=== PATIENT | female | born 1965 | race African-American/Black ===

== ENCOUNTER 2019-01-12 16:43 | Emergency (ER) | payer OTHER ==
[2019-01-12 16:58] LABS: APPEARANCE,URINE Cloudy (CLEAR); BILIRUBIN,URINE Negative (NEGATIVE); COLOR,URINE Yellow (YELLOW); GLUCOSE, URINE (UA) Negative (NEGATIVE); KETONES,URINE Negative (NEGATIVE); LEUKOCYTE ESTERASE ,URINE Trace (NEGATIVE); NITRATE,URINE Negative (NEGATIVE); OCCULT BLOOD,URINE Negative (NEGATIVE); PROTEIN,URINE Negative (NEGATIVE)
[2019-01-12 17:17] LABS: BACTERIA,URINE Moderate /HPF (None Seen); MUCUS,URINE Few LPF (None Seen)
[2019-01-12] MEDS ORDERED: SODIUM CHLORIDE 0.9% 1000ML 1,000 ML IV ONE (17:30)
[2019-01-12 17:36] LABS: BASOPHILS % (AUTO) 0.7 % (0.0-5.0); EOSINOPHILS % (AUTO) 2.1 % (0.0-8.0); HEMATOCRIT 41.6 % (36-48); LYMPHOCYTES % (AUTO) 33.7 % (21.0-51.0); MEAN CORPUSCULAR HEMOGLOBIN 24.7 pg (27.0-33.0); MEAN CORPUSCULAR HGB CONC 31.8 g/dL (32.0-36.0); MEAN CORPUSCULAR VOLUME 77.8 fL (79-99); MONOCYTES % (AUTO) 8.5 % (3.0-13.0); NUCLEATED RED BLOOD CELLS 0.1 % (0.0-0.19); PLATELET COUNT (AUTO) 303 K/uL (130-400); RED BLOOD CELL COUNT(AUTO) 5.35 MIL/uL (4.00-5.50); RED CELL DISTRIBUTION WIDTH 15.1 % (11.0-15.5); WHITE BLOOD COUNT (AUTO) 8.9 K/uL (4.8-10.8)
[2019-01-12 17:44] LABS: CREATININE 0.9 mg/dL (0.5-1.5); POTASSIUM 4.2 mmol/L (3.5-5.1)
[2019-01-12 17:49] LABS: ALBUMIN 3.5 g/dL (3.5-5.0); BILIRUBIN,TOTAL 0.4 mg/dL (0.2-1.0); TOTAL PROTEIN, SERUM 8.4 g/dL (6.0-8.3)
[2019-01-12] MEDS ORDERED: IOHEXOL-350 75 ML VIAL IV ONE (18:09)
[2019-01-12] MEDS ORDERED: CEFTRIAXONE SODIUM 1 GM ONE (18:12)
[2019-01-12] MEDS ORDERED: HYDROCODONE/ACETAMINOPHEN 5/325 MG TAB ONE (18:43)
[2019-01-12] MEDS ORDERED: ONDANSETRON HCL 4 MG/2 ML VIAL ONE (19:03)
== END 2019-01-12 20:11 | disposition home or self-care (01) ==
LOC: EDH 16:43
DX: K57.92 Diverticulitis of intestine, part unspecified, without perforation or abscess without bleeding (principal); Z90.710 Acquired absence of both cervix and uterus; Z90.49 Acquired absence of other specified parts of digestive tract; Z72.0 Tobacco use
CPT/HCPCS: 36415; 74177; 80053; 81001; 83690; 85025; 96374; 96375; 99284; J0696; J2405; J7030; Q9967

== ENCOUNTER 2021-07-26 08:53 | Emergency (ER) | payer OTHER ==
[~2021-07-26] VITALS: Ht 175.3 cm; Wt 163.3 kg
[2021-07-26 11:31] VITALS: BP 154/92
[2021-07-26] MEDS ORDERED: DICL50TA9 PO (11:33)
[2021-07-26] MEDS ORDERED: ACET1TAB25 PO (11:33)
== END 2021-07-26 11:39 | disposition home or self-care (01) ==
LOC: EDH 08:55
DX: M46.1 Sacroiliitis, not elsewhere classified (principal); R10.2 Pelvic and perineal pain; M25.552 Pain in left hip; M54.50 Low back pain, unspecified; Z90.710 Acquired absence of both cervix and uterus; Z90.49 Acquired absence of other specified parts of digestive tract; Z98.890 Other specified postprocedural states
CPT/HCPCS: 73502

== ENCOUNTER 2021-12-30 16:04 | Emergency (ER) | payer OTHER ==
[~2021-12-30] VITALS: Ht 170.2 cm; Wt 163.3 kg
[~2021-12-30 16:04] MED LIST: ACET-2079 PO; DICL50TA9 PO
[2021-12-30 18:21] LABS: BASOPHILS % (AUTO) 0.2 % (0.0-5.0); EOSINOPHILS % (AUTO) 0.7 % (0.0-8.0); HEMATOCRIT 44.6 % (36-48); LYMPHOCYTES % (AUTO) 13.9 % (21.0-51.0); MEAN CORPUSCULAR HEMOGLOBIN 24.8 pg (27.0-33.0); MEAN CORPUSCULAR HGB CONC 30.9 g/dL (32.0-36.0); MEAN CORPUSCULAR VOLUME 80.1 fL (79-99); MONOCYTES % (AUTO) 8.2 % (3.0-13.0); NEUTROPHILS % (AUTO) 76.4 % (40.0-77.0); PLATELET COUNT (AUTO) 260 K/uL (130-400); RED BLOOD CELL COUNT(AUTO) 5.57 MIL/uL (4.00-5.50); RED CELL DISTRIBUTION WIDTH 14.3 % (11.0-15.5)
[2021-12-30 18:32] LABS: CREATININE 0.8 mg/dL (0.5-1.5)
[2021-12-30 18:45] LABS: TOTAL PROTEIN, SERUM 9.3 g/dL (6.0-8.3)
[2021-12-30 19:00] LABS: ALBUMIN 3.3 g/dL (3.5-5.0)
[2021-12-30] MEDS ORDERED: FAMOTIDINE 20MG VIAL IV ONE (19:00)
[2021-12-30] MEDS ORDERED: MORPHINE 4 MG SYG IVP ONE (19:00)
[2021-12-30] MEDS ORDERED: 0.9%NACL 1000ML 1,000 ML IV ONE (19:00)
[2021-12-30] MEDS ORDERED: ONDANSETRON 4MG INJ IVP ONE (19:00)
[2021-12-30] MEDS ORDERED: IOHEXOL 350 MG/ML 100ML INFUS..BTL IV ONE (19:05)
[2021-12-30 20:21] LABS: APPEARANCE,URINE SL CLOUDY (CLEAR); BILIRUBIN,URINE MODERATE (NEGATIVE); COLOR,URINE DARK YELLOW (YELLOW); GLUCOSE, URINE (UA) NEGATIVE (NEGATIVE); KETONES,URINE NEGATIVE (NEGATIVE); LEUKOCYTE ESTERASE ,URINE NEGATIVE (NEGATIVE); NITRATE,URINE NEGATIVE (NEGATIVE); OCCULT BLOOD,URINE NEGATIVE (NEGATIVE); PROTEIN,URINE TRACE mg/dL (NEGATIVE); UROBILINOGEN,URINE >=8.0 mg/dL (0.2-1.0)
[2021-12-30 20:31] LABS: BACTERIA,URINE Few /HPF (None Seen); RBC,URINE 0-1 /HPF (0-1); SQUAMOUS EPITHELIAL CELL,UR Few /HPF (0-2); WBC,URINE 0-1 /HPF (0-1)
[2021-12-30] MEDS ORDERED: ONDA4TAB10 PO (21:30)
[2021-12-30] MEDS ORDERED: SIME180C70 PO (21:30)
[2021-12-30] MEDS ORDERED: L.AC1CAP6 PO (21:30)
[2021-12-30 21:35] VITALS: BP 148/88
== END 2021-12-30 21:47 | disposition home or self-care (01) ==
LOC: EDH 16:04
DX: R10.84 Generalized abdominal pain (principal); R11.0 Nausea; R42 Dizziness and giddiness
CPT/HCPCS: 99285; 74177; 96374; 96375; 96361; 84484; 80053; 83690; 85025; 81001; 36415; 93005; J3490; J7030; J2405; J2270; Q9967